=== PATIENT | female | born 1945 | race Caucasian/White ===

== ENCOUNTER 2017-01-14 16:05 | Emergency (ER) | payer OTHER ==
[2017-01-14 16:13] VITALS: BP 154/96; PULSE 96; RESP 16; TEMP 97.7; O2SAT 96
--- NOTE | 2017-01-14 17:18 | EDPHY ---
H & P Stated Complaint: tripped fall neck pain Source: Patient, Family Exam Limitations: No limitations - Personal History Current Tetanus/Diphtheria Vaccine: Yes Current Tetanus Diphtheria and Acellular Pertussis (TDAP): Yes - Medical/Surgical History Hx Asthma: No Hx Chronic Respiratory Disease: No Hx Diabetes: Yes Hx Cardiac Disease: No Hx Renal Disease: No Hx Cirrhosis: No Hx Alcoholism: No Hx HIV/AIDS: No Hx Splenectomy or Spleen Trauma: No Other PMH: GERD, Depression, inflammation , htn, high chol - Social History Smoking Status: Former smoker HPI/ROS: CHIEF COMPLAINT: Neck pain, fall HISTORY OF PRESENT ILLNESS: Patient complains of neck pain after tripping while hiking today. This occurred approximately noon. She says she tripped over a tree root and fell. She says she fell, striking the top of her head on another object in the trail. This created axial load. She noted a sudden onset of pain in the lower neck, the paraspinous muscles and down into the lower back. It is mild to moderate. She continued to hike for greater than an hour. Her friends and family then convinced her to get her neck evaluated. She complains of no numbness or tingling. She has no weakness. She has no motor deficits. She has no saddle anesthesia. No incontinence of bowel or bladder. She 1st presented to an urgent care. Due to the complexity of her injury, the placed her in a collar and sent her to our facility for higher level of care. No loss of consciousness. She has no headache. No chest or back pain or injury. No other associated complaints or modifying factors. REVIEW OF SYSTEMS: Ten systems reviewed and are negative unless otherwise noted in the HPI PAST MEDICAL HISTORY: Arthritis, hypertension, lumbar disc pathology SOCIAL HISTORY: Nonsmoker. She resides in [place] but lives in [place] for the summer is in a cabin they have near [facility] FAMILY HISTORY: EXAMINATION General Appearance: Alert, no distress Head: normocephalic, atraumatic. No depression. No Diaz sign. No raccoon eyes. Eyes: Pupils equal and round, no conjunctival pallor or injection. EOMs intact. ENT, Mouth: Mucous membranes moist. Airway patent. Neck: C-collar in place. Trachea is midline. Respiratory: Lungs are clear to auscultation. No wheezing, rhonchi or crackles Cardiovascular: Regular rate and rhythm. No murmur. Pulses intact distally symmetrically Gastrointestinal: Abdomen is soft and nontender Back: No midline tenderness of the thoracic or lumbar spine. There is soft tissue tenderness over the trapezius muscles. Neurological: GCS 15. Cranial nerves 2-12 grossly intact. A&O, nonfocal, normal gait. Strength is 5/5 in all 4 limbs. Sensory symmetric. No pronator drift. Skin: Warm and dry, no rash. No lacerations abrasions or contusions. Extremities: Nontender, no pedal edema Psychiatric: Mood and affect normal DIFFERENTIAL DIAGNOSES: Including but not limited to muscular strain, disc injury, ligamentous injury, fracture, dislocation, spondylolisthesis, neurapraxia MDM: 5:12 p.m. Mechanical fall with axial load and subsequent lower neck pain. By history examination I suspect this is soft tissue injury. She is neuro intact. CT scan of the cervical spine has been ordered. She was placed in a cervical spine collar prior to arrival in [facility] in [facility]. 5:[address]. Notified by radiologist. CT scan of the cervical spine reveals degenerative changes with moderate stenosis at C5-C7. There is no acute finding. 6:00 p.m. I have re-evaluated the patient. I have removed the cervical spine collar following the results of the C-spine imaging. She remains neuro intact with lateral rotation flexion extension of the neck. She has minimal pain, all of which is not midline. I do not have suspicion of ligamentous injury, instability of the cervical spine, acute cord compression. She is discharged home stable condition. She is instructed to hold her meloxicam and changed to naproxen for the next 2-3 days. She will call her primary care physician in [place] tomorrow. She will follow up with that physician upon return home next week. Return to the ER for any numbness, tingling, weakness, saddle anesthesia, incontinence of bowel or bladder. She is comfortable this plan and discharged home stable condition. SUPERVISION: Patient was evaluated in conjunction with the supervising physician. Please see their note for details. (Cruzito Guallpa) Constitutional: Initial Vital Signs Temperature (C) 36.5 C 01/14/17 16:09 Heart Rate 96 01/14/17 16:09 Respiratory Rate 16 01/14/17 16:09 Blood Pressure 154/96 H 01/14/17 16:09 O2 Sat (%) 96 01/14/17 16:09 O2 Delivery Mode Room Air Medical Decision Making - Diagnostics Imaging Results: Imaging Impressions Cervical Spine CT 01/14/17 17:12 Impression: 1. No definite fracture. 2. Multilevel moderate to severe degenerative disk disease worse at C5-C6 and C6 -C7 with moderate to severe stenosis at C5-C6 and C6-C7 secondary to degenerative retrolisthesis and facet arthropathy. 3. Degenerative anterolisthesis at C4-C5. 4. If there is persistent pain or neurologic deficit, recommend MR cervical spine and consider flexion and extension views, if clinically indicated. Findings and recommendations discussed with Emergency Department physician's assistant program director, Cruzito Guallpa, at 1742 hours, 01/14/2017. Final report concurs with initial preliminary interpretation. ED Course/Re-evaluation: I did not see this patient while she was in the emergency department. However her care was discussed with the PA while the patient was in the department. I agree with treatment plan and management (Reyes Sloan) Departure - Departure Disposition: Home, Routine, Self-Care Clinical Impression: Acute cervical sprain Qualifiers: Encounter type: initial encounter Qualified Code(s): S13.9XXA - Sprain of joints and ligaments of unspecified parts of neck, initial encounter Condition: Good Instructions: Cervical Strain (ED), Soft Cervical Collar (ED) Additional Instructions: 1. Hold her meloxicam for the next few days 2. Switch to naproxen 1 pill twice daily as needed 3. Follow up with primary care physician upon return back to [place] 4. Return to ER for precautions as discussed Referrals: ERICKSON GUY [Other] - As per Instructions Sigifredo Moses MD [Medical Doctor] - As per Instructions
== END 2017-01-14 18:40 | disposition home or self-care (01) ==
DX: S13.9XXA Sprain of joints and ligaments of unspecified parts of neck, initial encounter (principal); E11.9 Type 2 diabetes mellitus without complications; I10 Essential (primary) hypertension; Z87.891 Personal history of nicotine dependence; W01.198A Fall on same level from slipping, tripping and stumbling with subsequent striking against other object, initial encounter; Y99.8 Other external cause status; Y93.01 Activity, walking, marching and hiking